=== PATIENT | male | born 1980 | race Two or more races ===

== ENCOUNTER 2019-06-30 19:00 | Emergency (ER) | payer OTHER ==
[~2019-06-30] VITALS: Ht 167.6 cm; Wt 68.2 kg
[2019-06-30] MEDS ORDERED: PANT40TA25 PO (19:02)
[2019-06-30 20:39] VITALS: BP 111/69
== END 2019-06-30 20:47 | disposition home or self-care (01) ==
LOC: EMS 19:02
DX: R00.2 Palpitations (principal); F41.9 Anxiety disorder, unspecified; Z88.6 Allergy status to analgesic agent
CPT/HCPCS: 93005